=== PATIENT | male | born 1975 | race Two or more races ===

== ENCOUNTER 2019-10-02 18:18 | Emergency (ER) | payer OTHER ==
[~2019-10-02] VITALS: Ht 175.3 cm; Wt 89.0 kg
[2019-10-02] MEDS ORDERED: FLUORESCEIN OPHTH TEST STRIP. OD ONE (20:00)
[2019-10-02] MEDS ORDERED: TETRACAINE 0.5% OPHTH SOLUTION 4ML BOTTLE. OD ONE (20:00)
[2019-10-02 20:07] VITALS: BP 176/81
[2019-10-02] MEDS ORDERED: ERYT1OIN6 OD (20:43)
[2019-10-02] MEDS ORDERED: HYDR-2761 PO (20:43)
--- NOTE | 2019-10-02 20:43 | PHYS DOC ---
Past Medical History Past Medical History: No Pertinent History Past Surgical History: No Surgical History Smoking Status: Never Smoker Alcohol Use: Occasionally General Adult EDM: Chief Complaint: FOREIGN BODY/EYES HPI: HPI: Patient is a 43 year old male who presents to the emergency department with complaints of feeling like there is something stuck in his right eye. He states that his right eye has been tearing and he has had pain in it after he was grinding some metal at work yesterday. He denies any vision changes, purulent drainage, headache, dizziness, or floaters. Currently rates his discomfort a 7 out of 10 on the pain scale, he denies any alleviating or exacerbating factors, he denies any radiation of the pain. Review of Systems: Review of Systems: Complete ROS is negative unless otherwise stated in the HPI. Heart Score: Risk Factors: Risk Factors: DM, Current or recent (<one month) smoker, HTN, HLP, family history of CAD, obesity. Risk Scores: Score 0 - 3: 2.5% MACE over next 6 weeks - Discharge Home Score 4 - 6: 20.3% MACE over next 6 weeks - Admit for Clinical Observation Score 7 - 10: 72.7% MACE over next 6 weeks - Early Invasive Strategies Current Medications: Current Medications Medications (Trade) Dose Ordered Sig/Fernando Start Time Stop Time Status Last Admin Dose Admin Fluorescein Sodium (Ful-Lissy) 1 strip 1X ONCE 10/02/19 20:00 10/02/19 20:01 DC 10/02/19 20:06 1 STRIP Tetracaine HCl (Tetracaine) 1 drop 1X ONCE 10/02/19 20:00 10/02/19 20:01 DC 10/02/19 20:06 1 DROP Allergies: Allergies: Allergies Coded Allergies Type Severity Reaction Last Updated Verified No Known Drug Allergies 10/02/19 No Physical Exam: PE: Constitutional: Well developed, well nourished, no acute distress, non-toxic appearance. [] HENT: Normocephalic, atraumatic, bilateral external ears normal, nose normal. [] Eyes: PERRLA, EOMI, left eye: Conjunctiva normal, no discharge; right eye: Normal conjunctivo-, no visible foreign body, no visible rust ring, watery discharge [] Neck: Normal range of motion, no stridor. [] Cardiovascular:Heart rate regular rhythm Lungs & Thorax: Respirations even and unlabored, no retractions, no respiratory distress Skin: Warm, dry, no erythema, no rash. [] Extremities: No cyanosis, ROM intact, no edema. [] Neurologic: Alert and oriented X 3, no focal deficits noted. [] Psychologic: Affect normal, judgement normal, mood normal. [] Current Patient Data: Vital Signs: Vital Signs Date Time Temp Pulse Resp B/P (MAP) Pulse Ox O2 Delivery O2 Flow Rate FiO2 10/02/19 20:07 55 16 176/81 (112) 98 Room Air 10/02/19 18:30 98.5 98.5 EKG: EKG: [] Radiology/Procedures: Radiology/Procedures: Using tetracaine and fluroscein the patient's right eye was examined under Wood's lamp and an area of uptake at approximately 9:00 over the patient's iris extending laterally over the conjunctiva was noted, no visible foreign body, or rust ring. Patient's ocular symptoms have stabilized while they have been evaluated in the department and are appropriate for outpatient work up. No evidence of ruptured globe, retinal detachment, acute angle closure glaucoma, or deep space infection. Plan for 24 hour ophthalmologic follow up. [] Course & Med Decision Making: Course & Med Decision Making Pertinent Labs and Imaging studies reviewed. (See chart for details) [] Dragon Disclaimer: Dragon Disclaimer: This electronic medical record was generated, in whole or in part, using a voice recognition dictation system. Departure Departure Impression: Primary Impression: Injury of conjunctiva and corneal abrasion of right eye w/o FB Qualified Codes: S05.01XA - Injury of conjunctiva and corneal abrasion without foreign body, right eye, initial encounter Referrals: NO PCP (PCP) SVETLANA FLORES MD Patient Instructions: Conjunctivitis (Viral and Bacterial), Eye - Conjunctival Foreign Body Additional Instructions: Fill the prescription(s) and use as directed. Apply warm, moist washcloths to eyes needed for comfort. Recommend use of baby shampoo to wash eyelids. Follow- up with Dr. Flores's office for reevaluation, call tomorrow for an appointment. Return to the emergency room if your symptoms worsen. Scripts Hydrocodone Bit/Acetaminophen (HYDROCODONE-APAP 5-325 ) 1 Tab Tablet 1 TAB PO PRN Q6HRS PRN for PAIN for 3 Days, #10 TAB 0 Refills Prov: JEANMARIE PIERRE APRN 10/02/19 Erythromycin Base (Erythromycin) 1 Gm Oint...g. 0.5 INCH OD QID for 5 Days, #1 TUBE 0 Refills Prov: JEANMARIE PIERRE APRN 10/02/19 Justicifation of Admission Dx: Justifications for Admission: Justification of Admission Dx: N/A JEANMARIE PIERRE CREEL OPERATOR Oct 02, 2019 20:43
[2019-10-02] MEDS ORDERED: ERYTHROMYCIN 0.5% OPHTH OINTMENT 1GM TUBE. OD ONE (20:45)
== END 2019-10-02 21:05 | disposition home or self-care (01) ==
LOC: ER 18:18
DX: S05.01XA Injury of conjunctiva and corneal abrasion without foreign body, right eye, initial encounter (principal); X58.XXXA Exposure to other specified factors, initial encounter; Y93.89 Activity, other specified; Y92.89 Other specified places as the place of occurrence of the external cause; Y99.8 Other external cause status
CPT/HCPCS: 99283